=== PATIENT | male | born 1950 | race Caucasian/White ===

== ENCOUNTER 2017-08-01 17:10 | Emergency (ER) | payer MEDICAID, MEDICARE, OTHER ==
[~2017-08-01] VITALS: Ht 175.3 cm; Wt 112.5 kg
[~2017-08-01 17:10] MED LIST: ASPIRIN81 MG ORAL; AUGMENTIN 875-1 EAC1 ORAL; BACITRACIN1 APPLIC TOPIC; BACTRIM DS TAB1 EAC1 ORAL; COLCRYS0.6 M1 ORAL; DIFLUCAN100 MG ORAL; METOPROLOL SUCC25 MG ORAL; NITROSTAT0.4 M1 SL; NKM; T.E.D. ANTI-EM1 EA10 MC; TRAMADOL HCL50 MG ORAL
[2017-08-01] MEDS ORDERED: TOPICAINE 5113 GM TP (18:04)
[2017-08-01] MEDS ORDERED: TRAMADOL HCL50 MG ORAL (18:04)
[2017-08-01 19:19] VITALS: BP 146/81
[2017-08-01 19:21] VITALS: BP 146/81
--- NOTE | 2017-08-01 23:18 | Emergency Room Report ---
History of Present Illness General Chief Complaint: Pain Source: Patient Present Illness HPI The patient is a 66-year-old male presenting for bilateral nipple and breast pain for the past 3 weeks. He states that he was seen at [facility] where blood work was done and unremarkable. He is unsure why the pain began. Pain is an 8/10 sharp sensation, worse with touch. Does not radiate. He denies any nipple discharge. He denies other symptoms including nausea, vomiting, fever, chills, shortness of breath, abdominal pain, cough Allergies: Coded Allergies: No Known Allergies (Unverified , 04/21/16) Patient History Past Medical History: see triage record Pertinent Family History: none Reviewed Nursing Documentation: PMH: Agreed, PSxH: Agreed Nursing Documentation-PMH Hx Cardiac Problems: No Hx Cancer: Yes - Prostate Hx Gastrointestinal Problems: No Hx Neurological Problems: No Review of Systems All Other Systems: negative except mentioned in HPI Physical Exam Vital Signs Date Time Temp Pulse Resp B/P (MAP) Pulse Ox O2 Delivery O2 Flow Rate FiO2 08/01/17 17:14 98.1 87 18 146/81 97 Room Air Sp02 EP Interpretation: reviewed, normal General Appearance: no apparent distress, alert, GCS 15, non-toxic Head: normocephalic, atraumatic Eyes: bilateral eye normal inspection, bilateral eye PERRL ENT: hearing grossly normal, normal pharynx, no angioedema, normal voice Neck: full range of motion, supple/symm/no masses Respiratory: lungs clear, normal breath sounds, speaking full sentences Cardiovascular #1: regular rate, rhythm, no edema Gastrointestinal: normal bowel sounds, non tender, soft, non-distended, no guarding, no rebound Musculoskeletal: back normal, gait/station normal, normal range of motion, tender - bilat nipple Neurologic: alert, oriented x3, responsive, motor strength/tone normal, sensory intact, speech normal Psychiatric: judgement/insight normal, memory normal, mood/affect normal, no suicidal/homicidal ideation Medical Decision Making PA Attestation Dr. Orellana is my supervising physician. Patient management was discussed with my supervising physician Diagnostic Impression: Primary Impression: Breast tenderness in male ER Course The patient is a 66-year-old male presenting for bilateral nipple and breast pain Differential diagnoses considered but not limited to, mastitis, gynecomastia, abscess, hormonal imbalance, malignancy, among others Physical exam: No apparent distress Chest: There is tenderness to palpation over bilateral nipples to soft touch. No deformity. No erythema. No discharge. No nodules. The patient is discharged home and will be treated for symptoms but he was told he needs to followup with primary doctor as soon as possible as he may need imaging and further evaluation. ER precautions given Last Vital Signs Date Time Temp Pulse Resp B/P (MAP) Pulse Ox O2 Delivery O2 Flow Rate FiO2 08/01/17 19:21 98.1 74 18 146/81 97 Room Air Status: improved Disposition: HOME, SELF-CARE Condition: Improved Scripts Tramadol Hcl* (ULTRAM*) 50 Mg Tablet 50 MG ORAL Q6H Y for For Pain, #10 TAB 0 Refills Prov: JANET SANTOS 08/01/17 Lidocaine (TOPICAINE 5) 113 Gm Gel..gram. 1 APPLIC TP QID, #113 GM Prov: JANET SANTOS 08/01/17 Referrals: [facility]ERRIN (PCP) Patient Instructions: Breast Tenderness Additional Instructions: I discussed my findings with the patient. All questions and concerns have been answered. Treatment and medication compliance have been addressed.Return to ED if symptoms worsen, new symptoms arise, or if needed for any reason. Patient verbalized understanding of discharge instructions. The patient was told he needs to followup with the primary doctor for further evaluation JANET SANTOS Aug 01, 2017 23:18
== END 2017-08-01 19:00 | disposition home or self-care (01) ==
LOC: EMR 17:39
DX: N64.4 Mastodynia (principal); Z85.46 Personal history of malignant neoplasm of prostate
CPT/HCPCS: 99283